=== PATIENT | male | born 1980 | race Asian ===

== ENCOUNTER 2021-01-27 17:55 | Emergency (ER) | payer OTHER ==
[2021-01-27 18:20] VITALS: BP 125/80; PULSE 78; TEMP 97.9; BMI 29.6
== END 2021-01-27 19:58 | disposition home or self-care (01) ==
LOC: JER 17:55
DX: R11.2 Nausea with vomiting, unspecified (principal); R10.13 Epigastric pain
CPT/HCPCS: 99283-25